=== PATIENT | female | born 1985 | race American Indian/Alaskan Native ===

== ENCOUNTER 2017-10-06 08:05 | Emergency (ER) | payer SELFPAY ==
[2017-10-06 08:31] VITALS: BP 122/75
--- NOTE | 2017-10-06 09:32 | XRay Report ---
RIGHT ANKLE, 3 views: History: right ankle pain. Findings: Mild soft tissue swelling is identified. No acute osseous abnormality or joint pathology is identified. The fifth metatarsal base is intact. Impression: Soft tissue swelling. No acute osseous injury.
--- NOTE | 2017-10-06 10:50 | Emergency Department Report ---
ED Lower Extremity HPI - General Chief Complaint: Extremity Injury, Lower Stated Complaint: ANKLE/FOOT PAIN Time Seen by Provider: 10/06/17 10:27 Source: patient Mode of arrival: Ambulatory Limitations: No Limitations - History of Present Illness Initial Comments: This is a 31-year-old female who is previously unknown to this provider, reports that she is not . Presents to the ER with a complaint of right lateral ankle and dorsal foot pain which has been present for weeks after "rolling my foot" at work. The pain is achy and sharp, increases with palpation and range of motion, and it decreases with rest. It somewhat radiates up the distal anterior aspect of her right lower extremity. She does report relief with [id number] pain medication. She has no other complaints. MD Complaint: ankle injury -: Gradual, week(s) Injury: Ankle: Right Type of Injury: inversion Place: work Severity: mild Improves With: rest Worsens With: weight bearing, movement, palpation Associated Symptoms: swelling, ambulatory. denies: numbness, tingling, unable to bear weight, able to partially bear weight - Related Data Previous Rx's Medication Instructions Recorded Last Taken Type Acetaminophen [Tylenol Arthritis] 650 mg PO Q6HR PRN #30 tablet.er 10/06/17 Unknown Rx Ibuprofen [Motrin] 600 mg PO Q8H PRN #30 tablet 10/06/17 Unknown Rx Allergies Allergy/AdvReac Type Severity Reaction Status Date / Time No Known Allergies Allergy Unverified 10/06/17 08:27 ED Review of Systems ROS: Stated complaint: ANKLE/FOOT PAIN Other details as noted in HPI ED Past Medical Hx - Past Medical History Previous Medical History?: Yes Additional medical history: Vaginal dleivery x 1 05-10-2015 - Surgical History Past Surgical History?: No - Social History Smoking Status: Never Smoker Substance Use Type: Non Opiate Pain - Medications Home Medications: Home Medications Medication Instructions Recorded Confirmed Last Taken Type Acetaminophen [Tylenol Arthritis] 650 mg PO Q6HR PRN #30 tablet.er 10/06/17 Unknown Rx Ibuprofen [Motrin] 600 mg PO Q8H PRN #30 tablet 10/06/17 Unknown Rx ED Physical Exam - General Limitations: No Limitations General appearance: alert, in no apparent distress, obese - Head Head exam: Present: atraumatic, normocephalic - Eye Eye exam: Present: normal appearance - ENT ENT exam: Present: normal exam, normal orophraynx, mucous membranes moist, normal external ear exam - Neck Neck exam: Present: normal inspection, full ROM - Respiratory Respiratory exam: Present: normal lung sounds bilaterally. Absent: respiratory distress - Cardiovascular Cardiovascular Exam: Present: regular rate, normal rhythm, normal heart sounds. Absent: systolic murmur, diastolic murmur, rubs, gallop - GI/Abdominal GI/Abdominal exam: Present: soft, normal bowel sounds. Absent: distended, tenderness, guarding, rebound, rigid, pulsatile mass - Extremities Exam Extremities exam: Present: normal inspection, full ROM, tenderness (there is right dorsal/lateral foot tenderness, there is right lateral malleolus tenderness. There is soft tissue swelling. There is no instability. There is no tenderness at the base of the fifth metatarsal. There is no calcaneal tenderness. The compartments are soft, there is no pain with passive range of motion.), normal capillary refill. Absent: pedal edema, joint swelling, calf tenderness - Back Exam Back exam: Present: normal inspection, full ROM. Absent: tenderness, CVA tenderness (R), paraspinal tenderness, vertebral tenderness - Neurological Exam Neurological exam: Present: alert, oriented X3, CN II-XII intact, normal gait, other (Extraocular movements intact. Tongue midline. No facial droop. Facial sensation intact to light touch in the V1, V2, V3 distribution bilaterally. 5 and 5 strength in 4 extremities.. Sensation is intact to light touch in 4 extremities.). Absent: motor sensory deficit - Psychiatric Psychiatric exam: Present: normal affect, normal mood - Skin Skin exam: Present: warm, dry, intact, normal color. Absent: rash ED Course Vital Signs 10/06/17 08:27 Temperature 98.6 F Pulse Rate 76 Respiratory 16 Rate Blood Pressure 122/75 O2 Sat by Pulse 98 Oximetry ED Lower Extremity MDM - Lab Data Vital Signs 10/06/17 08:27 Temperature 98.6 F Pulse Rate 76 Respiratory 16 Rate Blood Pressure 122/75 O2 Sat by Pulse 98 Oximetry - Radiology Data Radiology results: report reviewed, image reviewed X-ray of the ankle, interpreted by myself and radiology: No fracture or dislocation, soft tissue swelling is noted - Medical Decision Making Differential diagnosis, including but not limited to: Tendinitis, sprain, strain , fracture, dislocation Assessment and plan: 31-year-old female with a few weeks of right-sided ankle pain. She is afebrile with reassuring vital signs, walks with a steady gait, no clinical indication of DVT or compartment syndrome, has no pulse deficits, felt improved after pain medication, she will be referred to outpatient orthopedics and/or primary care, she will likely benefit from physical therapy, and I reviewed some physical therapy exercises that she could do to improve her strength and range of motion Critical care attestation.: If time is entered above; I have spent that time in minutes in the direct care of this critically ill patient, excluding procedure time. ED Disposition Clinical Impression: Right foot pain Disposition: DC-01 TO HOME OR SELFCARE Is pt being admited?: No Does the pt Need Aspirin: No Condition: Stable Instructions: Arthralgia (ED) Additional Instructions: Rest and avoid heavy lifting. Avoid strenuous physical activities. Take pain medication as directed. Follow up with an outpatient primary care doctor, orthopedist, for other sports coach or instructor. Perform range of motion and physical therapy activities as we have discussed. Return to the ER right away with new pain, worsened pain, migration of pain, fevers, chills, lethargy, irritability, projectile vomiting, change in mental status, confusion, weakness , numbness, inability to tolerate liquid feeds. Referrals: PRIMARY CARE, [Primary Care Provider] - 3-5 Days VIPIN BURROUGHS MD [Staff Physician] - 3-5 Days FRANCESCO BYNUM MD [Staff Physician] - 3-5 Days Forms: Work/School Release Form(ED)
[2017-10-06] MEDS ORDERED: MOTRIN PO ONE (10:52)
[2017-10-06] MEDS ORDERED: TYLENOL PO ONE (10:52)
== END 2017-10-06 11:20 | disposition home or self-care (01) ==
LOC: ED 08:05
DX: M79.671 Pain in right foot (principal)
CPT/HCPCS: 99283